=== PATIENT | female | born 1930 | race Caucasian/White ===

== ENCOUNTER 2020-06-10 10:14 | Outpatient (CLI) | payer MEDICARE | END 2020-06-10 10:15 | disposition home or self-care (01) | LOC: CSHWCC 10:14 | PROVIDERS: ATTEND Nurse Practitioner Family | DX: I87.332 Chronic venous hypertension (idiopathic) with ulcer and inflammation of left lower extremity (principal); L97.828 Non-pressure chronic ulcer of other part of left lower leg with other specified severity; L97.822 Non-pressure chronic ulcer of other part of left lower leg with fat layer exposed; R60.0 Localized edema; E03.9 Hypothyroidism, unspecified; E78.2 Mixed hyperlipidemia; I87.2 Venous insufficiency (chronic) (peripheral); M13.80 Other specified arthritis, unspecified site; M80.08XD Age-related osteoporosis with current pathological fracture, vertebra(e), subsequent encounter for fracture with routine healing; W01.198D Fall on same level from slipping, tripping and stumbling with subsequent striking against other object, subsequent encounter | CPT/HCPCS: 11042; 29581; 99213; G0463 ==

== ENCOUNTER 2020-06-24 10:53 | Outpatient (CLI) | payer OTHER, MEDICARE | END 2020-06-24 10:54 | disposition home or self-care (01) | LOC: CSHWCC 10:53 | PROVIDERS: ATTEND Nurse Practitioner Family | DX: I87.332 Chronic venous hypertension (idiopathic) with ulcer and inflammation of left lower extremity (principal); I87.2 Venous insufficiency (chronic) (peripheral); L97.822 Non-pressure chronic ulcer of other part of left lower leg with fat layer exposed; R60.0 Localized edema; E03.9 Hypothyroidism, unspecified; E78.2 Mixed hyperlipidemia; M13.80 Other specified arthritis, unspecified site; M80.08XD Age-related osteoporosis with current pathological fracture, vertebra(e), subsequent encounter for fracture with routine healing; W01.198D Fall on same level from slipping, tripping and stumbling with subsequent striking against other object, subsequent encounter | CPT/HCPCS: 11042; 29581; 97139; G0463; 99213 ==

== ENCOUNTER 2020-07-08 11:27 | Outpatient (CLI) | payer OTHER, MEDICARE | END 2020-07-08 11:28 | disposition home or self-care (01) | LOC: CSHWCC 11:27 | PROVIDERS: ATTEND Nurse Practitioner Family | DX: I87.312 Chronic venous hypertension (idiopathic) with ulcer of left lower extremity (principal); L97.822 Non-pressure chronic ulcer of other part of left lower leg with fat layer exposed; E03.9 Hypothyroidism, unspecified; E78.2 Mixed hyperlipidemia; I10 Essential (primary) hypertension; I87.2 Venous insufficiency (chronic) (peripheral); M13.80 Other specified arthritis, unspecified site; M80.08XS Age-related osteoporosis with current pathological fracture, vertebra(e), sequela; R60.0 Localized edema; W01.198S Fall on same level from slipping, tripping and stumbling with subsequent striking against other object, sequela | CPT/HCPCS: 11042; 29581; 97139; G0463; 99213 ==